=== PATIENT | female | born 1990 | race Caucasian/White ===

== ENCOUNTER 2016-12-22 23:45 | Emergency (ER) | payer BC ==
[~2016-12-22 23:45] MED LIST: ELIMITE60 G1 TP; NO MEDICATIONS
[2016-12-22] MEDS ORDERED: MIRENA (23:48)
== END 2016-12-23 01:38 | disposition home or self-care (01) ==
LOC: SED 23:45
DX: R51 Headache (principal); K21.9 Gastro-esophageal reflux disease without esophagitis
CPT/HCPCS: 36415; 96361; 96374; 96375; 99284; J1200; J1885; J2765

== ENCOUNTER 2017-06-05 20:07 | Emergency (ER) | payer BC ==
[~2017-06-05] VITALS: Ht 162.6 cm; Wt 74.8 kg
--- NOTE | ~2017-06-05 | CT71 ---
[facility] A Service of [facility] RADIOLOGY TEXT RESULTS PATIENT: JEFFERY DRIVER LOCATION: SED : 92 UNIT #: [id number] AGE: [address]: ISIDRO ALCALA SEX: F ORDER DR: [id number] [place] [id number] MR#: [id number] Acc #: [id number] NAME: JEFFERY DRIVER : 1990 SEX: F STUDY DATE/TIME: 06/05/2017 2251 UNIT: SED ROOM: STUDY DESCRIPTION: CT Head Wo Contrast Attending Physician: Isidro Alcala Ordering Physician: Isidro Alcala Primary Care Physician: No Primary Care Physician MEDICAL IMAGING REPORT This report is preliminary unless electronic signature is present. EXAM Head CT, 06/05 at 2251. INDICATION Migraine headache for the last 2 hours. Blurred vision. COMPARISON None TECHNIQUE Axial noncontrast images were obtained from the skull base to the vertex. This CT exam was performed with one or more of the following radiation dose reduction techniques: automatic exposure control, adjustment of mA and/or kV according to patient size, and iterative reconstruction. FINDINGS Ventricular size and configuration are normal. There is no evidence of acute infarct or hemorrhage. There are no extraaxial fluid collections. No mass lesion or mass effect is seen. There are no skull fractures. IMPRESSION Normal noncontrast head CT. Dictated by... Michael Holcomb Jr., M.D. THIS IS AN ELECTRONICALLY VERIFIED REPORT Michael Holcomb Jr., M.D. at 06/07/2017 3:12 AM RLK/tmw [facility] A Service [facility] RADIOLOGY TEXT RESULTS PATIENT: JEFFERY DRIVER LOCATION: SED : 92 UNIT #: [id number] AGE: [address]: ISIDRO ALCALA SEX: F ORDER DR: TD: 06/06/2017 19:49 JOB #: [id number] MEDICAL IMAGING REPORT Page 1 of 1
[~2017-06-05 20:07] MED LIST changes: +MIRENA
== END 2017-06-05 23:55 | disposition home or self-care (01) ==
LOC: SED 20:07
DX: J01.00 Acute maxillary sinusitis, unspecified (principal); K21.9 Gastro-esophageal reflux disease without esophagitis
CPT/HCPCS: 70450; 84703; 96374; 96375; 99284; J1100; J1200; J1885; J2765